=== PATIENT | male | born 1980 | race Caucasian/White ===

== ENCOUNTER 2017-08-30 08:38 | Emergency (ER) | payer MEDICAID ==
--- NOTE | 2017-08-30 08:58 | EDPHY ---
H & P Source: Patient, RN/MD Exam Limitations: Clinical condition Time Seen by Provider: 08/30/17 08:58 HPI/ROS: HPI: This is a 37-year-old male who presents with Chief Complaint: Suicidal ideation Location: psych Quality:suicidal ideation Duration: 1 month Signs and Symptoms: + auditory and visual command hallucinations, + suicidal ideation with a plan, no homicidal ideation, + paranoid Timing: Worsening Severity: Moderate Context: Patient has a history schizophrenia-depressive type, diagnosed at age 17, presents from the homeless [facility] with complaints of worsening delusions and hallucinations including seeing spiders on the wall, dogs attacking him. He reports that he hears voices telling him to take all of his pills and kill himself. He reports that his symptoms have worsened over the last several days. He no longer is caring for himself including personal hygiene. He knows that this is a marker for him decompensating quickly. He has had prior psychiatric inpatient admission and prior suicide attempts. Patient reports that he is originally from [place]. Has no family. Has been in [place] for 1-2 months. He he has been taking his oral psychiatric medications but has not had his IM Haldol in over 4 weeks. He normally gets 150 mg IM every 3 weeks. He has been unable to establish care with [facility]. Reports that he has been compliant with his Cogentin, propranolol, Vistaril, Prozac and oral Haldol. Patient currently denies any medical issues or chronic medical problems. Denies chest pain/shortness of breath/abdominal pain/fever/nausea/ vomiting. Patient admits to marijuana and alcohol use. Denies alcohol use within the last 24 hr. Reports that he was born in [facility] but lived in [facility]. When he was 8 years old he sustained a trauma to his left eye while in [facility]. Modifying Factors: None Comment: ROS: see HPI Constitutional: No fever, no chills, no weight loss Eyes: No blurred vision Respiratory: No shortness of breath, no cough Cardiovascular: No chest pain Gastrointestinal: No nausea, no vomiting, no diarrhea Genitourinary: No dysuria Extremities: No myalgias Neurologic: No weakness, no numbness Skin: No rashes Hematologic: No bruising, no bleeding MEDICAL/SURGICAL/SOCIAL HISTORY: Medical history: Schizophrenia. Surgical history: Left eye prosthesis Social history: Unemployed. CONSTITUTIONAL: Calm and cooperative, nontoxic appearing adult male, awake and alert, no obvious distress HEENT: Atraumatic and normocephalic, PERRL, EOMI. Tympanic membranes clear. Oropharynx clear, no exudate and moist pink mucosa. Airway patent. No lymphadenopathy. No meningismus. Cardiovascular: Normal S1/S2, regular rate, regular rhythm, without murmur rub or gallop. PULMONARY/CHEST: Symmetrical and nontender. Clear to auscultation bilaterally. Good air movement. No accessory muscle usage. ABDOMEN: Soft, nondistended, nontender, no rebound, no guarding, no peritoneal signs, no masses or organomegaly. No CVAT. EXTREMITIES: 2/2 pulses, strength 5/5, no deformities, no clubbing, no cyanosis or edema. NEUROLOGICAL: no focal neuro deficits. GCS 15. SKIN: Warm and dry, no erythema. no rash. Good capillary refill. PSYCH: Poor eye contact, no flight of ideas, organized thought process, relatively good insight and judgment, + auditory and visual command hallucinations, + suicidal ideation with a plan, no homicidal ideation, + paranoid (Janice,Terra) Constitutional: Initial Vital Signs Temperature (C) 36.4 C 08/30/17 08:38 Heart Rate 76 08/30/17 08:38 Respiratory Rate 16 08/30/17 08:38 Blood Pressure 140/83 H 08/30/17 08:38 O2 Sat (%) 95 08/30/17 08:38 O2 Delivery Mode Room Air Allergies/Adverse Reactions: menthol Allergy (Verified 08/30/17 09:12) Penicillins Allergy (Verified 08/30/17 09:11) risperidone [From Risperdal] Allergy (Verified 08/30/17 09:12) shrimp Allergy (Verified 08/30/17 09:11) Home Medications: Medication Instructions Recorded Cogentin 08/30/17 Haldol 0.5 MG (*) 08/30/17 Haldol Injection 08/30/17 Propranolol HCl 08/30/17 Prozac 10 MG (*) 08/30/17 Vistaril 08/30/17 Medical Decision Making ED Course/Re-evaluation: 0910: Placed on M1 hold upon arrival due to be gravely disabled secondary to command auditory and visual hallucinations telling him to kill himself. Labs and UDS ordered. Patient is currently calm and cooperative. Given Zyprexa 5 mg upon arrival. 0930: UDS positive for marijuana. 0945: Reviewed labs: Medically clear for mental health evaluation 1150: Notified by RN that mental health recommends inpatient psychiatric treatment for patient. This patient was seen under the supervision of my secondary supervising physician. I evaluated care for this patient independently. Discussed this patient with Dr. Shannon who did not see the patient. (Neva Camacho) Differential Diagnosis: Differential diagnosis includes but is not limited to schizophrenia, severe major depression, suicidal ideation, psychosis, delusional. (Neva Camacho) Other Provider: PHYSICIAN DOCUMENTATION: The patient was evaluated and managed by the Physician Customs Compliance Manager. My co- signature indicates that I have reviewed this chart and I agree with the findings and plan of care as documented. I am the secondary supervising physician. (Errol Shannon) - Data Points Laboratory Results: Laboratory Results 08/30/17 09:07 08/30/17 09:07 08/30/17 08/30/17 08/30/17 09:07 09:07 08:57 WBC 9.68 10^3/uL H 10^3/uL (3.80-9.50) RBC 4.49 10^6/uL 10^6/uL (4.40-6.38) Hgb 14.4 g/dL g/dL (13.7-17.5) Hct 41.7 % % (40.0-51.0) MCV 92.9 fL fL (81.5-99.8) MCH 32.1 pg pg (27.9-34.1) MCHC 34.5 g/dL g/dL (32.4-36.7) RDW 12.7 % % (11.5-15.2) Plt Count 405 10^3/uL H 10^3/uL (150-400) MPV 8.6 fL L fL (8.7-11.7) Neut % (Auto) 66.8 % % (39.3-74.2) Lymph % (Auto) 25.2 % % (15.0-45.0) [place] % (Auto) 4.4 % L % (4.5-13.0) Eos % (Auto) 3.0 % % (0.6-7.6) Baso % (Auto) 0.4 % % (0.3-1.7) Nucleat RBC Rel Count 0.0 % % (0.0-0.2) Absolute Neuts (auto) 6.46 10^3/uL 10^3/uL (1.70-6.50) Absolute Lymphs (auto) 2.44 10^3/uL 10^3/uL (1.00-3.00) Absolute Monos (auto) 0.43 10^3/uL 10^3/uL (0.30-0.80) Absolute Eos (auto) 0.29 10^3/uL 10^3/uL (0.03-0.40) Absolute Basos (auto) 0.04 10^3/uL 10^3/uL (0.02-0.10) Absolute Nucleated RBC 0.00 10^3/uL 10^3/uL (0-0.01) Immature Gran % 0.2 % % (0.0-1.1) Immature Gran # 0.02 10^3/uL 10^3/uL (0.00-0.10) Sodium 140 mEq/L mEq/L (135-145) Potassium 4.5 mEq/L mEq/L (3.5-5.2) Chloride 106 mEq/L mEq/L (97-110) Carbon Dioxide 23 mEq/l mEq/l (22-31) Anion Gap 11 mEq/L mEq/L (8-16) BUN 9 mg/dL mg/dL (7-23) Creatinine 0.9 mg/dL mg/dL (0.7-1.3) Estimated GFR > 60 Glucose 104 mg/dL H mg/dL (70-100) Calcium 9.9 mg/dL mg/dL (8.5-10.4) Urine Opiates Screen NEGATIVE (NEGATIVE) Urine Barbiturates NEGATIVE (NEGATIVE) Ur Phencyclidine Scrn NEGATIVE (NEGATIVE) Ur Amphetamine Screen NEGATIVE (NEGATIVE) U Benzodiazepines Scrn NEGATIVE (NEGATIVE) Urine Cocaine Screen NEGATIVE (NEGATIVE) U Marijuana (THC) Screen NON-NEGATIVE H (NEGATIVE) Ethyl Alcohol < 10 mg/dL mg/dL (0-10) Medications Given: Discontinued Medications Olanzapine (Zyprexa Zydis) 5 mg PO EDNOW ONE Stop: 08/30/17 09:31 Last Admin: 08/30/17 10:05 Dose: Not Given Departure - Departure Disposition: Other Psych, Not [facility] Clinical Impression: Suicidal ideation Schizophrenia Qualifiers: Schizophrenia type: unspecified Qualified Code(s): F20.9 - Schizophrenia, unspecified Condition: Fair
[2017-08-30 09:15] LABS: PLATELET COUNT 405 10^3/uL (150-400)
[2017-08-30] MEDS ORDERED: OLANZapine DISINTEGR 5 MG TAB PO ONE (09:30)
[2017-08-30 15:58] VITALS: BP 138/77; PULSE 72; RESP 15; TEMP 97.7; O2SAT 96
== END 2017-08-30 15:59 ==
LOC: EDUNIT#
DX: R45.851 Suicidal ideations (principal); F20.9 Schizophrenia, unspecified
CPT/HCPCS: 80305; G0480

== ENCOUNTER 2017-10-28 16:45 | Emergency (ER) | payer MEDICAID ==
--- NOTE | 2017-10-28 16:53 | EDPHY ---
HPI/HX/ROS/PE/MDM Narrative: CHIEF COMPLAINT: Multiple unwitnessed seizures HISTORY OF PRESENT ILLNESS: The patient is a 37 y/o male with a history of schizophrenia, anxiety, and a seizure disorder, arriving via EMS after experiencing 4 unwitnessed seizures this afternoon. He was previously diagnosed with a seizure disorder and prescribed Lamictal and Keppra, which he stopped taking 2 years ago. Today the 4 seizures lasted around 10 seconds and varied in strength. They occurred every 3-4 minutes for a total of 10-15 minutes. The seizures were accompanied by a loud hum and wobbling sensation, which is different than prior seizures. The seizures today were similar to prior seizures regarding their strength and length. When the seizures occurred he fell onto his face from sitting on his backpack. He was cognizant in between the seizures. Denies urinary incontinence but is having a stinging sensation in the back of his tongue. Upon arrival, EMS reports that the patient was not in a post ictal state and did not have any oral trauma. He is currently complaining of left-sided rip pain upon inhalation. The patient admits to taking several psychiatric medications including Haldol, Prozac. However, he did not take these medications last night or today. Admits to drinking a 6pack of beer daily. Last drank 36oz of alcohol yesterday. Denies history of alcohol withdrawal seizures. Admits to smoking marijuana today. No fever, chills, chest pain, shortness of breath, palpitations, vomiting, diarrhea, urinary complaints, headache, lightheadedness. REVIEW OF SYSTEMS: Aside from elements discussed in the HPI, a comprehensive 10-point review of systems was reviewed and is negative. PAST MEDICAL HISTORY: Schizophrenia, anxiety, depression, seizure disorder, prosthetic left eye, lesion behind left eye SOCIAL HISTORY: Transient, single, admits to drinking alcohol and using marijuana daily VITAL SIGNS: Reviewed by me GENERAL: Well-developed, well-nourished, resting comfortably in no respiratory distress. No visible facial head trauma. Alert. HEENT: Atraumatic. Eyes: No icterus, no injection. KRYSTAL. EOMI. Mouth: moist mucous membranes, no intraoral trauma. No erythema or lesions. Neck: supple with no adenopathy. Nontender to palpation. LUNGS: Lower left rib tenderness. No visible trauma. No crepitus. Clear to auscultation bilaterally, no wheezes, rhonchi or rales. CARDIAC: Regular rate and rhythm, no rubs, murmurs or gallops. ABDOMEN: Soft, nontender, nondistended, bowel sounds normal. BACK: No CVA tenderness. EXTREMITIES: No trauma. No edema. Range of motion is normal throughout. NEURO: Neurologically intact. Alert and oriented, motor strength 5/5. Sensation intact. Grossly nonfocal. SKIN: Warm and dry, no rash. PSYCHIATRIC: Normal mentation, no agitation. Portions of this note were transcribed by a medical equipment repairer. I personally performed a history, physical exam, medical decision making, and confirmed accuracy of information the transcribed note. ED Course: The patient is a 37 y/o male with a history of schizophrenia, anxiety, and a seizure disorder, arriving via EMS after experiencing 4 unwitnessed seizures this afternoon. On exam he is neurologically intact and has no oral trauma. He does have lower left rib tenderness. Labs and head CT ordered. 174: Spoke with Dr. Felix, radiologist, he reports the head CT is negative. 175: Patient's labs are normal. He will be given an outpatient follow up with Dr. Carlin, neurologist. 1759: Reassessed patient and discussed laboratory and imaging findings. I have discussed follow up with a neurologist. Return precautions provided; patient is comfortable with this plan. 1825: At discharge, the patient is still complaining of left-sided rib pain. Chest x-ray ordered. 1834: I reviewed patient's chest x-ray, there are no acute findings. Radiologist reading still pending. 1836: Reassessed patient and discussed imagining findings. He is now okay to be discharged. I have advised him to take ibuprofen for the facial contusion and rib pain. I have also advised him to drink plenty of water and avoid alcohol. MDM: Differential diagnosis of the patient's seizure was considered including but not limited to electrolyte abnormality, alcohol withdrawal, medication noncompliance, head injury, meningitis, encephalitis, and breakthrough seizure. - Data Points Imaging Results: Imaging Impressions Head CT 10/28/17 17:12 Impression: 1. Negative for mass lesion or structural abnormality to act as a seizure focus. 2. No acute intracranial posttraumatic abnormality is seen. A preliminary report was called to the Emergency Department at 1740 hours. Imaging: Discussed imaging studies w/ on call pharmacy technician Radiologist, I viewed and interpreted images myself Laboratory Results: Laboratory Results 10/28/17 17:30 18 17:30 10/28/17 10/28/17 10/28/17 17:30 17:30 17:09 WBC 9.01 10^3/uL 10^3/uL (3.80-9.50) RBC 4.58 10^6/uL 10^6/uL (4.40-6.38) Hgb 14.0 g/dL g/dL (13.7-17.5) Hct 41.3 % % (40.0-51.0) MCV 90.2 fL fL (81.5-99.8) MCH 30.6 pg pg (27.9-34.1) MCHC 33.9 g/dL g/dL (32.4-36.7) RDW 12.5 % % (11.5-15.2) Plt Count 328 10^3/uL 10^3/uL (150-400) MPV 8.9 fL fL (8.7-11.7) Neut % (Auto) 56.0 % % (39.3-74.2) Lymph % (Auto) 33.9 % % (15.0-45.0) [place] % (Auto) 5.8 % % (4.5-13.0) Eos % (Auto) 3.3 % % (0.6-7.6) Baso % (Auto) 0.7 % % (0.3-1.7) Nucleat RBC Rel Count 0.0 % % (0.0-0.2) Absolute Neuts (auto) 5.05 10^3/uL 10^3/uL (1.70-6.50) Absolute Lymphs (auto) 3.05 10^3/uL H 10^3/uL (1.00-3.00) Absolute Monos (auto) 0.52 10^3/uL 10^3/uL (0.30-0.80) Absolute Eos (auto) 0.30 10^3/uL 10^3/uL (0.03-0.40) Absolute Basos (auto) 0.06 10^3/uL 10^3/uL (0.02-0.10) Absolute Nucleated RBC 0.00 10^3/uL 10^3/uL (0-0.01) Immature Gran % 0.3 % % (0.0-1.1) Immature Gran # 0.03 10^3/uL 10^3/uL (0.00-0.10) Sodium 141 mEq/L mEq/L (135-145) Potassium 4.1 mEq/L mEq/L (3.5-5.2) Chloride 105 mEq/L mEq/L (97-110) Carbon Dioxide 25 mEq/l mEq/l (22-31) Anion Gap 11 mEq/L mEq/L (8-16) BUN 10 mg/dL mg/dL (7-23) Creatinine 0.8 mg/dL mg/dL (0.7-1.3) Estimated GFR > 60 Glucose 92 mg/dL mg/dL (70-100) Calcium 9.3 mg/dL mg/dL (8.5-10.4) Urine Opiates Screen NEGATIVE (NEGATIVE) Urine Barbiturates NEGATIVE (NEGATIVE) Ur Phencyclidine Scrn NEGATIVE (NEGATIVE) Ur Amphetamine Screen NEGATIVE (NEGATIVE) U Benzodiazepines Scrn NEGATIVE (NEGATIVE) Urine Cocaine Screen NEGATIVE (NEGATIVE) U Marijuana (THC) Screen NON-NEGATIVE H (NEGATIVE) Ethyl Alcohol < 10 mg/dL mg/dL (0-10) General Time Seen by Provider: 10/28/17 16:49 Initial Vital Signs: Initial Vital Signs Temperature (C) 36.9 C 10/28/17 16:45 Heart Rate 71 10/28/17 16:45 Respiratory Rate 16 10/28/17 16:45 Blood Pressure 121/68 H 10/28/17 16:45 O2 Sat (%) 96 10/28/17 16:45 O2 Delivery Mode Room Air Allergies/Adverse Reactions: menthol Allergy (Verified 08/30/17 09:12) Penicillins Allergy (Verified 08/30/17 09:11) risperidone [From Risperdal] Allergy (Verified 08/30/17 09:12) shrimp Allergy (Verified 08/30/17 09:11) Home Medications: Medication Instructions Recorded Cogentin 08/30/17 Haldol 0.5 MG (*) 08/30/17 Haldol Injection 08/30/17 Propranolol HCl 08/30/17 Prozac 10 MG (*) 08/30/17 Vistaril 08/30/17 Departure - Departure Disposition: Home, Routine, Self-Care Clinical Impression: Seizure Rib contusion Qualifiers: Encounter type: initial encounter Laterality: left Qualified Code(s): S20.212A - Contusion of left front wall of thorax, initial encounter Condition: Good Instructions: Epilepsy (ED), Nonepileptic Seizures (ED), Alcohol Withdrawal (ED ), Facial Contusion (ED) Additional Instructions: Take ibuprofen as directed for facial pain and chest pain. Drink plenty of water and avoid alcohol. Follow-up with your primary doctor within 72 hours. Follow-up with a neurologist in the next week regarding your seizures. You have been referred to Dr. Carlin. Return to the Emergency Department for severe headache, vomiting, vision changes , confusion, fever, seizures or other concerns. Referrals: Aniceto Carlin MD [Medical Doctor] - As per Instructions [facility],. [Clinic] - As per Instructions Report Scribed for: Belinda Castanon Report Scribed by: Loyda Nguyen Date of Report: 10/28/17 Time of Report: 16:53
[2017-10-28 17:40] LABS: PLATELET COUNT 328 10^3/uL (150-400)
[2017-10-28] MEDS ORDERED: IBUPROFEN 600 MG TAB PO ONE (18:40)
[2017-10-28 18:48] VITALS: BP 122/72
== END 2017-10-28 19:07 | disposition home or self-care (01) ==
LOC: EDUNIT#
DX: G40.909 Epilepsy, unspecified, not intractable, without status epilepticus (principal); S20.212A Contusion of left front wall of thorax, initial encounter; W19.XXXA Unspecified fall, initial encounter
CPT/HCPCS: 80305; G0480